=== PATIENT | female | born 1945 | race Caucasian/White ===

== ENCOUNTER 2018-02-26 05:32 | Day surgery (SDC) | payer OTHER ==
[~2018-02-26 05:32] MED LIST: BYSTOLIC5 MG PO; COZAAR50 MG PO; HYDROCHLOROTHIA25 MG PO; LEUCOVORIN CALC10 MG PO; LYRICA PO; METHOTREXATE PO; RESTORIL PO; ZINC LOZENGES1 EACH PO; ZOCOR20 MG PO; [UNRECOGNIZED DRUG - OTHER]
[2018-02-26] MEDS ORDERED: ULTRACET PO (11:25)
[2018-02-26] MEDS ORDERED: MACROBID 100 M100 MG PO (11:25)
== END 2018-02-26 13:40 | disposition home or self-care (01) ==
LOC: CIR.AMB 05:32
DX: N81.3 Complete uterovaginal prolapse (principal)

== ENCOUNTER 2019-05-13 06:10 | Day surgery (SDC) | payer OTHER ==
[~2019-05-13 06:10] MED LIST changes: +MACROBID 100 M100 MG PO; +OMEPRAZOLE20 MG; +PEPCID20 MG; +TIZANIDINE HCL4 M1; +ULTRACET PO; +VITAMINA D
[2019-05-13] MEDS ORDERED: MACROBID 100 M100 MG PO (12:37)
[2019-05-13] MEDS ORDERED: ULTRACET PO (12:38)
== END 2019-05-13 16:00 | disposition home or self-care (01) ==
LOC: CIR.AMB 06:10
DX: N81.6 Rectocele (principal); N81.5 Vaginal enterocele